=== PATIENT | female | born 1975 | race African-American/Black ===

== ENCOUNTER → 2018-03-26 | Outpatient (CLI) | payer OTHER ==
[2018-03-26 11:46] LABS: T.VAGINALIS (WET MOUNT) NO TRICHOMONAS SEEN
[2018-03-26 11:47] LABS: EPITHELIALS (WET MOUNT) 4+ EPITHELIALS SEEN; WBCS (WET MOUNT) RARE WBCS SEEN; YEAST (WET MOUNT) NO YEAST SEEN
[2018-03-26 13:18] LABS: CHLAM PCR NOT DETECTED (NOT DETECT); GON PCR NOT DETECTED (NOT DETECT)
== END ==
LOC: LAB 11:35
PROVIDERS: ATTEND Nurse Practitioner Acute Care
DX: R10.30 Lower abdominal pain, unspecified (principal)
CPT/HCPCS: 87086; 87210; 87491; 87591